=== PATIENT | female | born 1970 | race Two or more races ===

== ENCOUNTER → 2018-03-16 07:13 | Outpatient (CLI) | payer OTHER, SELFPAY ==
--- NOTE | 2018-03-16 07:18 | BI_ITS ---
MAMMOGRAPHY - BILATERAL SCREENING REASON FOR EXAM: Female, 48 years old. Routine annual screening examination. PERTINENT HISTORY: Non-contributory. TECHNIQUE: Digital bilateral breast jennifer (3D mammographic acquisition) in the CC and MLO projections. 2-D mediolateral oblique (MLO) and craniocaudad (CC) views of both breasts were obtained. CAD: Full Field Digital Mammography with Computer Added Detection was performed. COMPARISON: Comparison is made with prior examination dated June 02, 2012. FINDINGS: Breast Composition: There are scattered areas of fibroglandular density. There are no dominant masses or suspicious calcifications. No other significant abnormalities are identified. There has been no significant change since the prior study. BI/SCREENING MAMM (CAD), BILAT IMPRESSION: Stable bilateral screening mammogram. Yearly follow-up mammogram recommended. (A) ASSESSMENT CATEGORY: BIRADS Category 1: Negative. A letter regarding these results will be sent to the patient by the facility within 30 days. Approximately 10% of breast cancers are not detected by mammography. A normal mammogram should not delay biopsy of a clinically suspicious abnormality. [id number] Electronically Signed: Nayan Hernandez MD at 12:50 EST , Service support ,
== END ==
PROVIDERS: Referring Provider Obstetrics & Gynecology; Visit Provider Obstetrics & Gynecology
DX: Z12.31 Encounter for screening mammogram for malignant neoplasm of breast (principal)
CPT/HCPCS: 77063; 77067

== ENCOUNTER → 2024-09-06 | Outpatient (CLI) | payer OTHER, SELFPAY ==
[2024-09-06 09:21] LABS: Hematocrit 43.1 % (37-47); Hemoglobin 14.6 g/dL (12.0-15.0); Immature Granulocytes Count 0.010 X10^3/uL (0.0-0.0); Mean Corp Hgb Conc 33.9 g/dL (32-36); Mean Corpuscular Volume 89.8 fL (81-99); Mean Platelet Vol. 10.3 fl (6.2-12.0); NRBC Flagged by Analyzer 0 % (0-5); Platelet Count 246 K/mm3 (150-450); RBC Distribution Width CV 12.3 % (11.6-14.6); RBC Distribution Width SD 40.3 fl (35.1-43.9); Red Blood Count 4.80 M/mm3 (4.2-5.4); White Blood Count 6.6 K/mm3 (4.4-11.0)
[2024-09-06 09:58] LABS: AST(SGOT) 22 U/L (<=31); Alanine Aminotransfer ALT/SGPT 18 U/L (<=34); Albumin, Serum 4.3 g/dL (3.5-5.0); Alkaline Phosphatase 91 U/L (35-104); Anion Gap 12 (5-15); BUN 15 mg/dL (4-19); BUN/Creat Ratio 18.9 RATIO (10-20); Calcium,Total 9.6 mg/dL (7.6-11.0); Carbon Dioxide 21.6 mmol/L (21.0-32.0); Chloride 105 mmol/L (98-108); Globulin 3.3 g/dL (2.2-4.2); Glucose 88 mg/dL (70-99); Lipase 149 U/L (13-75); Potassium 3.9 mmol/L (3.3-5.1)
[2024-09-07 14:09] LABS: Anti-Chromatin <0.2 AI (0.0-0.9); Anti-Jo <0.2 AI (0.0-0.9); Anti-dsDNA Ab 1 IU/mL (0-9); SJOGREN'S Anti-SS-A test < 0.2 AI (0.0-0.9); SJOGREN'S Anti-SS-B test < 0.2 AI (0.0-0.9)
[2024-09-07 15:08] LABS: IgG, Quant 1225 mg/dL (586-1602); Immunoglobulin G, Subclass 1 606 mg/dL (248-810); Immunoglobulin G, Subclass 2 418 mg/dL (130-555); Immunoglobulin G, Subclass 3 74 mg/dL (15-102); Immunoglobulin G, Subclass 4 30 mg/dL (2-96)
== END | disposition home or self-care (01) ==
LOC: LAB 08:18
PROVIDERS: PCP Student in an Organized Health Care Education/Training Program; Referring Provider Student in an Organized Health Care Education/Training Program; Visit Provider Student in an Organized Health Care Education/Training Program
DX: K86.1 Other chronic pancreatitis (principal)
CPT/HCPCS: 36415; 80053; 82784; 82787; 83690; 85025; 86225; 86235

== ENCOUNTER → 2025-01-30 | Outpatient (CLI) | payer OTHER, SELFPAY ==
--- NOTE | 2025-01-30 08:44 | MRI_ITS ---
PROCEDURE: MRI ABD WITH AND W/O CONTRAST 01/30/2025 REASON FOR EXAM: CHRONIC PANCREATITIS TECHNIQUE: Procedure Code: [id number] Modality: MR Procedure: MRI ABD WITH AND W/O CONTRAST Multiplanar and multisequence images were obtained. CONTRAST: Clariscan VOLUME: 19 mL COMPARISON: None FINDINGS: Variable overall mild/moderate motion limitation limiting sensitivity for small and subtle findings. Exam additionally limited by signal loss on some sequences of unclear etiology possibly related to soft tissue attenuation. Note that some abdominal viscera are excluded from the field of view on some sequences as the exam is optimized for evaluation of the pancreas. Liver: Few tiny cysts. Suspect a subtle 10 mm enhancing lesion in the central aspect of segment IV which is not visible on majority of sequences obtained possibly on a technical basis. Spleen: Unremarkable. Gallbladder: Grossly unremarkable. Pancreas: Apparent loss of intrinsic T1 signal extending from the pancreatic neck through the tail with relative preservation in the head/uncinate process. Reported cystic lesion not appreciable in the absence of MRCP sequences. No suspicious ductal dilatation. Adrenals: Unremarkable. Kidneys: Suspect cortical scarring on the LEFT. Bowel: Suboptimally evaluated by MRI; no gross bowel dilatation. Lymph nodes: Unremarkable. Vasculature: Unremarkable. Peritoneum: Unremarkable. Bones: Unremarkable. MRI/MRI Abd WITH and W/O Contrast IMPRESSION: 1. Findings compatible with the provided history of chronic pancreatitis. Repo rted pancreatic cystic lesion not appreciable in the absence of MRCP sequences and given above limitations. Compare with report ed outside imaging which is not available at the time of dictation, and consider MRCP as indicated. No suspicious ductal dilata tion. 2. Suspect a subtle indeterminate 10 mm hepatic lesion incompletely characteriz ed as the exam was optimized for evaluation of the pancreas. Comparison with above imaging would be helpful. If unavailable, rec [facility] multiphase hepatic protocol MRI with and without contrast. 3. Additional description as above. Reading Location: [id number]
== END | disposition home or self-care (01) ==
PROVIDERS: PCP Student in an Organized Health Care Education/Training Program; Referring Provider Student in an Organized Health Care Education/Training Program; Visit Provider Student in an Organized Health Care Education/Training Program
DX: K86.1 Other chronic pancreatitis (principal); K86.89 Other specified diseases of pancreas
CPT/HCPCS: 74183; A9575